=== PATIENT | male | born 1975 | race Caucasian/White ===

== ENCOUNTER 2016-06-17 18:17 | Emergency (ER) | payer OTHER, SELFPAY | END 2016-06-17 21:50 | disposition home or self-care (01) | LOC: ER 18:17 | DX: S61.411A Laceration without foreign body of right hand, initial encounter (principal); W45.8XXA Other foreign body or object entering through skin, initial encounter | CPT/HCPCS: 12001; 90471; 90715; 99070; 99282-25; 99283 ==

== ENCOUNTER 2016-06-27 18:20 | Emergency (ER) | payer OTHER | END 2016-06-27 19:45 | disposition home or self-care (01) | LOC: ER 18:20 | DX: T81.31XA Disruption of external operation (surgical) wound, not elsewhere classified, initial encounter (principal) | CPT/HCPCS: 99070; 99282 ==